=== PATIENT | female | born 1985 | race Caucasian/White ===

== ENCOUNTER → 2016-10-04 | Outpatient (CLI) | payer MEDICARE, OTHER ==
--- NOTE | ~2016-10-04 | CR151 ---
[facility] A Service of [facility] & [facility] RADIOLOGY TEXT RESULTS PATIENT: ALLEN MENDOZA LOCATION: [facility] : [birth year] UNIT #: [id number] AGE: [address]: Luz Fernandez MD SEX: F ORDER DR: [id number] [facility] [address] [place], [place] [address] [id number] O MR#: [id number] Acc #: [id number] NAME: ALLEN MENDOZA : 1985 SEX: F STUDY DATE/TIME: 10/04/2016 14:35 UNIT: [facility] ROOM: STUDY DESCRIPTION: CR Hip Min 2 Views Rt Attending Physician: Luz Fernandez M.D. Referring Physician: Luz Fernandez M.D. Ordering Physician: Luz Fernandez M.D. Primary Care Physician: Lzu Fernandez M.D. MEDICAL IMAGING REPORT This report is preliminary unless electronic signature is present EXAM Right hip 2 views 10/04/2016 HISTORY Right hip pain chronic for 1 year with no known injury. FINDINGS AP and oblique examination of the hip shows adequate mineralization of the bones and a normal anatomic relationship of the femoral head with the acetabulum. There are no hypertrophic changes, fractures, dislocation, or joint capsular distension. No radiopaque foreign body is present about the soft tissues of the hip. IMPRESSION Normal hip. Dictated by... Santos Hunt M.D. THIS IS AN ELECTRONICALLY VERIFIED REPORT Santos Hunt M.D. at 10/07/2016 7:39 AM BRODIE/charly TD: 10/05/2016 01:15 JOB #: [id number] MEDICAL IMAGING REPORT Page 1 of 1 COPY
--- NOTE | ~2016-10-04 | CR242 ---
[facility] A Service of [facility] & [facility] RADIOLOGY TEXT RESULTS PATIENT: ALLEN MENDOZA LOCATION: [facility] : 87 UNIT #: [id number] AGE: [address]: Luz Fernandez MD SEX: F ORDER DR: [id number] [facility] [address]. [place], [place] [address] [id number] O MR#: [id number] Acc #: [id number] NAME: ALLEN MENDOZA : 1985 SEX: F STUDY DATE/TIME: 10/04/2016 14:36 UNIT: [facility] ROOM: STUDY DESCRIPTION: CR Thoracic Spine 2 Views Attending Physician: Luz Fernandez M.D. Referring Physician: Luz Fernandez M.D. Ordering Physician: Luz Fernandez M.D. Primary Care Physician: Luz Fernandez M.D. MEDICAL IMAGING REPORT This report is preliminary unless electronic signature is present EXAM Thoracic spine 3 views 10/04/2016 HISTORY Chronic thoracic back pain for 1 year with no known injury. FINDINGS 3 views of the thoracic spine demonstrate no fracture. The posterior vertebral body line is intact and there is no anterolisthesis or retrolisthesis. The disc spaces are normally maintained. Small anterior osteophytes are seen in the [id number] thoracic spine. IMPRESSION Minimal degenerative change in the thoracic spine. No acute abnormality. Dictated by... Santos Hunt M.D. THIS IS AN ELECTRONICALLY VERIFIED REPORT Snatos Hunt M.D. at 10/07/2016 7:39 AM BRODIE/charly TD: 10/05/2016 01:36 JOB #: [id number] MEDICAL IMAGING REPORT Page 1 of 1 COPY
--- NOTE | ~2016-10-04 | CR150 ---
[facility] A Service of [facility] RADIOLOGY TEXT RESULTS PATIENT: ALLEN MENDOZA LOCATION: [facility] : 86 UNIT #: [id number] AGE: [address]: Luz Fernandez MD SEX: F ORDER DR: [id number] [facility] [address] [place], [place] [address] [id number] O MR#: [id number] Acc #: [id number] NAME: ALLEN MENDOZA : 1985 SEX: F STUDY DATE/TIME: 10/04/2016 14:36 UNIT: [facility] ROOM: STUDY DESCRIPTION: CR Hip Min 2 Views Lt Attending Physician: Luz Fernandez M.D. Referring Physician: Luz Fernandez M.D. Ordering Physician: Luz Fernandez M.D. Primary Care Physician: Luz Fernandez M.D. MEDICAL IMAGING REPORT This report is preliminary unless electronic signature is present EXAM Left hip 2 views 10/04/2016 HISTORY Left hip pain for 1 year. Chronic with no known injury. FINDINGS AP and oblique examination of the hip shows adequate mineralization of the bones and a normal anatomic relationship of the femoral head with the acetabulum. There are no hypertrophic changes, fractures, dislocation, or joint capsular distension. No radiopaque foreign body is present about the soft tissues of the hip. IMPRESSION Normal hip. Dictated by... Santos Hunt M.D. THIS IS AN ELECTRONICALLY VERIFIED REPORT aSntos Hunt M.D. at 10/07/2016 7:39 AM BRODIE/charly TD: 10/05/2016 01:19 JOB #: [id number] MEDICAL IMAGING REPORT Page 1 of 1 COPY
--- NOTE | ~2016-10-04 | CR184 ---
[facility] A Service of [facility] & [facility] RADIOLOGY TEXT RESULTS PATIENT: ALLEN MENDOZA LOCATION: [facility] : 87 UNIT #: [id number] AGE: [address]: Luz Fernandez MD SEX: F ORDER DR: [id number] [facility] [address]. [place], [place] [address] [id number] O MR#: [id number] Acc #: [id number] NAME: ALLEN MENDOZA : 1985 SEX: F STUDY DATE/TIME: 10/04/2016 14:36 UNIT: [facility] ROOM: STUDY DESCRIPTION: CR Lumbar Spine Min 4 Views Attending Physician: Luz Fernandez M.D. Referring Physician: Luz Fernandez M.D. Ordering Physician: Luz Fernandez M.D. Primary Care Physician: Luz eFrnandez M.D. MEDICAL IMAGING REPORT This report is preliminary unless electronic signature is present EXAM Lumbar spine 5 views 10/04/2016 HISTORY Chronic low back pain and bilateral hip pain for 1 year with no known injury. FINDINGS AP and lateral projections of the lumbar segment show good mineralization of both anterior and posterior elements. They are all anatomically normal without indication of fracture, dislocation, or malignant change of a sclerotic or lytic type. There is no congenital defect noted. The sacroiliac joints are normal. IMPRESSION Normal lumbar spine. Dictated by... Santos Hunt M.D. THIS IS AN ELECTRONICALLY VERIFIED REPORT Santos Hunt M.D. at 10/07/2016 7:39 AM BRODIE/charly TD: 10/05/2016 01:35 JOB #: [id number] MEDICAL IMAGING REPORT Page 1 of 1 COPY
== END | disposition home or self-care (01) ==
LOC: CRAD 14:24
DX: M54.9 Dorsalgia, unspecified (principal); M25.551 Pain in right hip; G89.29 Other chronic pain; M47.814 Spondylosis without myelopathy or radiculopathy, thoracic region
CPT/HCPCS: 72070; 72110; 73502

== ENCOUNTER 2016-12-20 13:11 | Emergency (ER) | payer MEDICARE, OTHER ==
--- NOTE | ~2016-12-20 | EKG ---
PATIENT: ALLEN MENDOZA UNIT #: [id number] Ventricular Rate: 82 BPM Atrial Rate: 82 BPM P-R Interval: 146 ms QRS Duration: 84 ms Q-T Interval: 394 ms QTC Calculation(Bezet): 460 ms P [place]: 37 degrees Calculated R [place]: 65 degrees Calculated T [place]: 44 degrees Diagnosis Line: Normal sinus rhythm Diagnosis Line: T wave abnormality, consider anterior ischemia Diagnosis Line: Prolonged QT Diagnosis Line: Abnormal ECG Diagnosis Line: No previous ECGs available Diagnosis Line: Confirmed by LAMIN RANKIN MD ([id number]) on Diagnosis Line: 12/22/2016 10:41:03 AM INTERPRETING MD: STEPH
[2016-12-20 14:09] LABS: URINE SOURCE CLEAN CATCH
[2016-12-20 14:13] LABS: BASOPHIL% 0.7 % (0-2.5); EOSINOPHIL# 0.1 X10e3 (0-0.7); HEMATOCRIT 39.6 % (35.0-45.0); HEMOGLOBIN 12.8 gm/dL (12.0-16.0); LYMPHOCYTE# 2.2 X10e3 (1.0-3.5); LYMPHOCYTE% 35.8 % (17.0-45.0); MEAN CELL VOLUME 94.9 FL (83-96); MEAN CORPUSCULAR HEMOGLOBIN 30.6 PG (28-34); MEAN CORPUSCULAR HGB CONC 32.2 g/dL (30-36); MEAN PLATELET VOLUME 7.9 FL (6.5-11.5); MONOCYTE# 0.4 X10e3 (0-1.0); MONOCYTE% 6.5 % (3.0-12.0); NEUTROPHIL# 3.5 X10e3 (1.5-7.1); PLATELET COUNT 141 X10e3 (140-420); RED BLOOD COUNT 4.17 X10e (3.90-5.30); RED CELL DISTRIBUTION WIDTH 18.5 % (11.0-15.5); WHITE BLOOD COUNT 6.2 X10e3 (4.0-10.5)
[2016-12-20 14:13] LABS: URINE APPEARANCE CLEAR; URINE BILIRUBIN NEG (NEG); URINE BLOOD 3+ (NEG); URINE COLOR ORANGE; URINE GLUCOSE NEG (NEG); URINE KETONE NEG (NEG); URINE LEUKOCYTE ESTERASE 1+ (NEG); URINE NITRATE NEG (NEG); URINE PROTEIN TRACE (NEG); URINE SPECIFIC GRAVITY 1.012 (1.003-1.035)
[2016-12-20 14:15] LABS: DIFF IND NO
[2016-12-20 14:16] LABS: CULTURE INDICATED? YES; URBCS1 AUWI INNUM /[HPF] (0-2); URINE BACTERIA AUWI 1+ (NEGATIVE); URINE SQUAMOUS EPITHELIAL CELL OCC /[HPF]
[2016-12-20 14:23] LABS: POC - CKMB <1.0 ng/mL (0.0-7.9); POC - TROPONIN <0.05 ng/mL (<=0.05)
[2016-12-20 14:37] LABS: ALBUMIN SERUM 3.6 g/dL (3.5-5.0); ALKALINE PHOSPHATASE 53 U/L (32-92); ALT (SGPT) 13 U/L (10-40); AST (SGOT) 20 U/L (10-42); BILIRUBIN,TOTAL 0.5 mg/dL (0.2-2.0); BLOOD UREA NITROGEN 10 mg/dL (9-23); BUN/CREATININE RATIO 16.66; CALCIUM SERUM 9.5 mg/dL (8.4-10.2); CARBON DIOXIDE 30 mmol/L (22-31); CHLORIDE 103 mmol/L (100-111); CREATININE SERUM 0.6 mg/dL (0.6-1.4); GLOM FILT RATE Estimated 122.3 mL/min (>60); GLUCOSE FASTING 83 mg/dL (70-110); POTASSIUM 3.3 mmol/L (3.5-5.1); PROTEIN TOTAL SERUM 7.8 g/dL (6.0-8.3); SODIUM 140 mmol/L (135-145)
[2016-12-20 14:40] LABS: BILIRUBIN, DIRECT <0.1 mg/dL (0.0-0.2); BILIRUBIN,INDIRECT 0.4 mg/dL (0.0-0.9)
[2016-12-20 16:30] LABS: POC - CKMB <1.0 ng/mL (0.0-7.9); POC - TROPONIN <0.05 ng/mL (<=0.05)
== END 2016-12-20 16:57 | disposition home or self-care (01) ==
LOC: CED 13:11
PROVIDERS: Emergency Medicine
DX: R06.00 Dyspnea, unspecified (principal); Z88.2 Allergy status to sulfonamides; Z88.5 Allergy status to narcotic agent
CPT/HCPCS: 36415; 80048; 80076; 81003; 82553; 82947; 84443; 84484; 85025; 85379; 87086; 93005; 99285

== ENCOUNTER → 2016-12-31 | Outpatient (CLI) | payer MEDICARE, OTHER ==
--- NOTE | ~2016-12-31 | TH ---
Unit #: [id number] #: [id number] Patient: ALLEN MENDOZA [id number] [address] [address] [id number] O MR#: [id number] NAME: ALLEN MENDOZA : 1985 SEX: F STUDY DATE/TIME: 12/31/2016 UNIT: CN ROOM: STUDY DESCRIPTION: Attending Physician: Ivory Avitia M.D. Referring Physician: Ivory Avitia M.D. Primary Care Physician: Luz Fernandez M.D. CARDIOLOGY REPORT DESCRIPTION This 31-year-old patient received 0.4 mg of Lexiscan intravenously followed by 33 mCi of technetium-99 Cardiolite and images were obtained according to a standard SPECT protocol. For rest images, 11.73 mCi of Cardiolite was injected. Images were reviewed in both phases. FINDINGS Overall study quality is excellent. LV cavity size is normal in both images. There is no lung activity. RV is normal. Rotating raw data showed no significant artifact, soft tissue attenuation, or GI uptake. Review of SPECT images showed normal homogeneous radiotracer concentration throughout the myocardium in both the stress and rest images. Gated images showed normal LV wall thickening and wall motion with an estimated LV ejection fraction of 65%. IMPRESSION 1. Myocardial perfusion imaging is normal. 2. No evidence of ischemia or infarct. 3. Normal left ventricle dimensions. 4. Normal systolic left ventricular function with an estimated left ventricular ejection fraction of 65%. 1. Dictated by... Jaymie Nevarez/kenneth TD: 12/31/2016 22:08 JOB #: [id number] CARDIOLOGY REPORT Page 1 of 1 X Lm Wilcox MD CARDIOLOGY REPORT
--- NOTE | ~2016-12-31 | ST ---
Unit #: [id number] #: [id number] Patient: ALLEN MENDOZA [id number] [address] [address] [id number] O MR#: [id number] NAME: ALLEN MENDOZA : 1985 SEX: F STUDY DATE/TIME: 12/31/2016 UNIT: [facility] ROOM: STUDY DESCRIPTION: Stress Test Attending Physician: Ivory Avitia M.D. Referring Physician: Ivory Avitia M.D. Primary Care Physician: Luz Fernandez M.D. CARDIOLOGY REPORT EXAM EKG Portion of a Lexiscan Cardiolite Stress Test REASON FOR EXAM Ongoing shortness of breath in a patient with a strong family history of premature coronary artery disease. DESCRIPTION Baseline EKG is sinus rhythm with ventricular rate of 80 and nonspecific T wave abnormalities. Lexiscan is a four minute test with Lexiscan being injected within the first minute followed by Cardiolite. FINDINGS 1. EKG during the test was equivocal to baseline. No acute ischemic changes. 2. The patient did report some mid sternal chest tightness one minute into the test with no radiating pain, no palpitations, no dizziness. She also reported nausea. The chest tightness did not resolve immediately in the recovery phase. It did ease up some, however, and she requested some nitroglycerin. Three minutes into the recovery period, she was given one nitroglycerin sublingual and her chest tightness resolved immediately. 3. Maximum heart rate response was 103 beats/minute with a maximum blood pressure of 131/91 mmHg. 4. Cardiolite was injected after Lexiscan within the first minute of the test. Radionuclide tests are pending. Please correlate with nuclear images. Dictated by... Chantelle Moreno APRN for Jaymie Valle TD: 12/31/2016 11:15 JOB #: [id number] Unit #: [id number] #: [id number] Patient: ALLEN MENDOZA CARDIOLOGY REPORT Page 1 of 1 X CARDIOLOGY REPORT
== END | disposition home or self-care (01) ==
LOC: CNUC 08:08
DX: R07.9 Chest pain, unspecified (principal); R94.31 Abnormal electrocardiogram [ECG] [EKG]; I51.7 Cardiomegaly
CPT/HCPCS: 78452; 93017; 93306; A9500; J2785